=== PATIENT | male | born 1985 | race Caucasian/White ===

== ENCOUNTER 2024-11-11 17:20 | Emergency (ER) | payer MEDICAID ==
[~2024-11-11] VITALS: Ht 172.7 cm; Wt 113.0 kg
[2024-11-11 17:27] VITALS: TEMP 36.9; O2SAT 97; O2SAT 98
[2024-11-11 20:42] VITALS: BP 154/79; PULSE 98; RESP 18
[2024-11-11] MEDS: KETOROLAC 30MG/ML VIAL IM ONE (20:42)
[2024-11-11] MEDS: HYDROCODONE/ACETAMINOPHEN 7.5/325MG TABLET PO ONE (20:42)
[2024-11-11] MEDS: DEXAMETHASONE 4MG/ML 1ML VIAL IM ONE (20:46)
[2024-11-11] MEDS ORDERED: IBUP-2029 MT (22:36)
== END 2024-11-11 23:15 | disposition home or self-care (01) ==
LOC: ER 17:20
DX: G89.29 Other chronic pain (principal); M54.50 Low back pain, unspecified; J45.909 Unspecified asthma, uncomplicated; Z79.52 Long term (current) use of systemic steroids; Z79.899 Other long term (current) drug therapy
CPT/HCPCS: 96372; 99284; J1100; J1885; Z7610